=== PATIENT | female | born 1990 | race Caucasian/White ===

== ENCOUNTER 2020-10-07 18:32 | Inpatient (IN) | payer MEDICAID ==
[~2020-10-07] VITALS: Ht 160 cm; Wt 52.3 kg
[~2020-10-07 18:32] MED LIST changes: -LORazepam 1MG TABLET ONE; -LORazepam 1MG TABLET PO ONE
[2020-10-07] MEDS ORDERED: DOCUSATE 100 MG CAPSULE PO PRN (19:00)
[2020-10-07] MEDS ORDERED: BISACODYL 10 MG SUPP PR PRN (19:00)
[2020-10-07] MEDS ORDERED: ONDANSETRON ODT 4 MG PO PRN (19:00)
[2020-10-07] MEDS ORDERED: POLYETHYLENE GLYCOL 17 GM PACKET PO PRN (19:00)
[2020-10-07] MEDS ORDERED: ACETAMINOPHEN 325 MG TABLET PO PRN (19:00)
[2020-10-07 19:30] VITALS: BP 119/75
[2020-10-07] MEDS ORDERED: PLEASE ENTER HEIGHT AND WEIGHT MC SCH (19:30)
[2020-10-07 21:00] VITALS: BP 119/75
[2020-10-07] MEDS ORDERED: ZIPRASIDONE 20MG CAPSULE PO SCH (21:00)
[2020-10-07] MEDS: PRAZOSIN 2 MG CAPSULE PO SCH (21:41)
[2020-10-07] MEDS: LORazepam 1MG TABLET PO PRN (22:27)
[2020-10-07 22:50] LABS: MICROSCOPIC NOT IND
[2020-10-08 06:32] LABS: BASOPHILS % (AUTO) 1 % (0-1); EOSINOPHILS % (AUTO) 2 % (1-7); LYMPHOCYTES % (AUTO) 39 % (22-44); MEAN CORPUSCULAR HEMOGLOBIN 31.1 pg (27.0-34.8); MEAN CORPUSCULAR HGB CONC 33.3 g/dL (32.4-35.8); MEAN PLATELET VOLUME 8.1 fL (7.4-10.4); MONOCYTES % (AUTO) 13 % (2-9); NEUTROPHILS % (AUTO) 46 % (42-75); PLATELET COUNT 313 x10^3/uL (130-400); RED BLOOD COUNT 4.52 x10^6/uL (3.82-5.3); RED CELL DISTRIBUTION WIDTH 12.7 % (9.6-15.2)
[2020-10-08 06:35] LABS: MD NO
[2020-10-08 06:41] LABS: ALBUMIN 3.6 g/dL (3.4-5.0); ANION GAP 3 mmol/L (5-15); CALCIUM 9.1 mg/dL (8.5-10.1); CHLORIDE 107 mmol/L (98-107)
[2020-10-08 06:45] LABS: ALANINE AMINOTRANSFERASE 25 U/L (12-78); ALKALINE PHOSPHATASE 61 U/L (45-117); BILIRUBIN,TOTAL 0.5 mg/dL (0.2-1.0); CHOL/HDL RATIO 1.7; CHOLESTEROL, TOTAL 113 mg/dL (140-239); HDL CHOL % 58 % (28-40); HDL CHOLESTEROL (DIRECT) 65 mg/dL (40-60); LDL CHOLESTEROL,CALCULATED 40 mg/dL (54-169); LDL/HDL RATIO 0.6 (0.5-3.0); TRIGLYCERIDES 40 mg/dL (50-200); VLDL CHOLESTEROL 8 mg/dL (0-25)
[2020-10-08 07:07] LABS: CREATININE 0.85 mg/dL (0.55-1.02)
[2020-10-08 07:13] VITALS: BP 120/80
[2020-10-08] MEDS: NICOTINE 21 MG/24 HR PATCH.TD24 TD SCH (08:13)
[2020-10-08] MEDS: LORazepam 1MG TABLET PO PRN ×2 (11:35→21:44)
[2020-10-08] MEDS: ZIPRASIDONE 20MG CAPSULE PO PRN (14:26)
[2020-10-08 19:35] VITALS: BP 112/81
[2020-10-08] MEDS: ZIPRASIDONE 40MG CAPSULE PO SCH (20:21)
[2020-10-08] MEDS: PRAZOSIN 2 MG CAPSULE PO SCH (20:28)
[2020-10-09 07:26] VITALS: BP 111/69
[2020-10-09] MEDS: NICOTINE 21 MG/24 HR PATCH.TD24 TD SCH (09:37)
[2020-10-09] MEDS: ZIPRASIDONE 20MG CAPSULE PO PRN (09:38)
[2020-10-09] MEDS: LORazepam 1MG TABLET PO PRN ×2 (11:09→19:29)
[2020-10-09 19:00] VITALS: BP 113/76
[2020-10-09] MEDS: ZIPRASIDONE 40MG CAPSULE PO SCH (20:09)
[2020-10-09] MEDS: PRAZOSIN 2 MG CAPSULE PO SCH (20:09)
[2020-10-09] MEDS: DIPHENHYDRAMINE 25 MG CAPSULE PO SCH (20:09)
[2020-10-10] MEDS: ZIPRASIDONE 20MG CAPSULE PO PRN ×2 (07:56→17:38)
[2020-10-10] MEDS: LORazepam 1MG TABLET PO PRN ×2 (07:56→18:41)
[2020-10-10] MEDS: NICOTINE 21 MG/24 HR PATCH.TD24 TD SCH (07:57)
[2020-10-10 19:25] VITALS: BP 108/75
[2020-10-10] MEDS: PRAZOSIN 2 MG CAPSULE PO SCH (19:41)
[2020-10-10] MEDS: ZIPRASIDONE 40MG CAPSULE PO SCH (19:41)
[2020-10-10] MEDS: DIPHENHYDRAMINE 25 MG CAPSULE PO SCH (19:41)
[2020-10-11 07:19] VITALS: BP 108/75
[2020-10-11 07:36] VITALS: BP 145/90
[2020-10-11] MEDS: NICOTINE 21 MG/24 HR PATCH.TD24 TD SCH (07:57)
[2020-10-11] MEDS: LORazepam 1MG TABLET PO PRN ×2 (07:59→20:24)
[2020-10-11] MEDS: ZIPRASIDONE 20MG CAPSULE PO PRN (12:33)
[2020-10-11 19:10] VITALS: BP 108/70
[2020-10-11] MEDS: ZIPRASIDONE 40MG CAPSULE PO SCH (20:18)
[2020-10-11] MEDS: DIPHENHYDRAMINE 25 MG CAPSULE PO SCH (20:19)
[2020-10-11] MEDS: PRAZOSIN 2 MG CAPSULE PO SCH (20:19)
[2020-10-12 07:00] VITALS: BP 98/65
[2020-10-12] MEDS: LORazepam 1MG TABLET PO PRN ×2 (08:26→21:05)
[2020-10-12] MEDS: ZIPRASIDONE 20MG CAPSULE PO PRN ×2 (08:30→16:21)
[2020-10-12] MEDS: NICOTINE 21 MG/24 HR PATCH.TD24 TD SCH (08:54)
[2020-10-12 19:53] VITALS: BP 110/62
[2020-10-12] MEDS: PRAZOSIN 2 MG CAPSULE PO SCH (20:03)
[2020-10-12] MEDS: ZIPRASIDONE 40MG CAPSULE PO SCH (20:03)
[2020-10-12] MEDS: DIPHENHYDRAMINE 25 MG CAPSULE PO SCH (20:05)
[2020-10-13] MEDS: ZIPRASIDONE 20MG CAPSULE PO PRN (06:23)
[2020-10-13 07:25] VITALS: BP 110/73
[2020-10-13] MEDS: NICOTINE 21 MG/24 HR PATCH.TD24 TD SCH (08:34)
[2020-10-13] MEDS: LORazepam 1MG TABLET PO PRN ×2 (08:34→20:49)
[2020-10-13] MEDS ORDERED: LORA-446 PO (12:50)
[2020-10-13] MEDS ORDERED: ZIPR20CA2 PO (12:50)
[2020-10-13] MEDS ORDERED: DIPH25CA26 PO (12:50)
[2020-10-13] MEDS ORDERED: NICO-587 TD (12:50)
[2020-10-13] MEDS ORDERED: PRAZ2CAP2 PO (12:50)
[2020-10-13] MEDS ORDERED: ZIPR40CA2 PO (12:50)
[2020-10-13 19:12] VITALS: BP 115/75
[2020-10-13] MEDS: DIPHENHYDRAMINE 25 MG CAPSULE PO SCH (20:45)
[2020-10-13] MEDS: PRAZOSIN 2 MG CAPSULE PO SCH (20:46)
[2020-10-13] MEDS: ZIPRASIDONE 40MG CAPSULE PO SCH (20:46)
[2020-10-14] MEDS: ZIPRASIDONE 20MG CAPSULE PO PRN (05:08)
[2020-10-14 07:26] VITALS: BP 110/74
[2020-10-14] MEDS: NICOTINE 21 MG/24 HR PATCH.TD24 TD SCH (09:00)
[2020-10-14] MEDS: LORazepam 1MG TABLET PO PRN (09:19)
== END 2020-10-14 11:30 | disposition home or self-care (01) | DRG 885 ==
LOC: 3E 18:57
PROVIDERS: ADMIT Psychiatry & Neurology Psychosomatic Medicine; ATTEND Psychiatry & Neurology Psychosomatic Medicine
DX: F31.2 Bipolar disorder, current episode manic severe with psychotic features (principal); F41.9 Anxiety disorder, unspecified; G47.00 Insomnia, unspecified; F17.210 Nicotine dependence, cigarettes, uncomplicated; F12.10 Cannabis abuse, uncomplicated; K58.9 Irritable bowel syndrome, unspecified; Z79.899 Other long term (current) drug therapy; Z83.3 Family history of diabetes mellitus; Z88.2 Allergy status to sulfonamides; Z88.8 Allergy status to other drugs, medicaments and biological substances
CPT/HCPCS: 36415; 71045; 80053; 80061; 81003; 82607; 82962; 84439; 84703; 85025; Q0163

== ENCOUNTER → 2020-10-07 | Emergency (ER) | payer MEDICAID, OTHER, SELFPAY ==
[~2020-10-07] VITALS: Ht 160 cm; Wt 55.0 kg
[~2020-10-07] MED LIST: HYDR-826 PO; LORazepam 1MG TABLET ONE; LORazepam 1MG TABLET PO ONE; PRAZ2CAP2 PO; ZIPR20CA2 PO
--- NOTE | 2020-10-07 13:25 | NUR ---
Pt up to bathroom, even steady gait. Alaina PROJECT ADMINISTRATOR at [facility] previously. Pt to be discharged home if father can care for her.
--- NOTE | 2020-10-07 13:40 | NUR ---
Patient on the phone with her father asking her "daddy, please come get me". Pt ambulates with even steady gate. Sitter at bediside.
[2020-10-07 13:55] LABS: BASOPHILS % (AUTO) 1 % (0-1); EOSINOPHILS % (AUTO) 0 % (1-7); LYMPHOCYTES % (AUTO) 22 % (22-44); MEAN CORPUSCULAR HEMOGLOBIN 31.7 pg (27.0-34.8); MEAN CORPUSCULAR HGB CONC 33.7 g/dL (32.4-35.8); MEAN PLATELET VOLUME 8.4 fL (7.4-10.4); MONOCYTES % (AUTO) 10 % (2-9); NEUTROPHILS % (AUTO) 67 % (42-75); PLATELET COUNT 364 x10^3/uL (130-400); RED BLOOD COUNT 4.67 x10^6/uL (3.82-5.3); RED CELL DISTRIBUTION WIDTH 12.9 % (9.6-15.2)
[2020-10-07 14:01] LABS: MD NO
[2020-10-07 14:06] LABS: CALCIUM 8.8 mg/dL (8.5-10.1); CHLORIDE 105 mmol/L (98-107)
[2020-10-07 14:15] LABS: AMPHETAMINE SCREEN, URINE Negative (Negative); BARBITURATE SCREEN, URINE Negative (Negative); BENZODIAZEPINE SCREEN, URINE Negative (Negative); CANNABINOID SCREEN, URINE Negative (Negative); COCAINE SCREEN, URINE Negative (Negative); METHADONE SCREEN, URINE Negative (Negative); OPIATE SCREEN, URINE Negative (Negative)
[2020-10-07 14:20] LABS: ALANINE AMINOTRANSFERASE 26 U/L (12-78); ALBUMIN 4.2 g/dL (3.4-5.0); ALKALINE PHOSPHATASE 72 U/L (45-117); ANION GAP 5 mmol/L (5-15); BILIRUBIN,TOTAL 0.3 mg/dL (0.2-1.0); CREATININE 0.97 mg/dL (0.55-1.02); SALICYLATE LEVEL 2.3 mg/dL (2.8-20.0); TOTAL PROTEIN 8.1 g/dL (6.4-8.2)
--- NOTE | 2020-10-07 15:11 | NUR ---
Pt has eaten LATIA Gonzales given. Pt was on the phone with river and Aunt Adolph
[2020-10-07 15:23] VITALS: BP 101/67
--- NOTE | 2020-10-07 15:47 | NUR ---
Pt on phone again, attempting to contact . Sitter with patient, and myself watching patient.
--- NOTE | 2020-10-07 16:06 | NUR ---
Preceptor RN: pt continues to make repeated phone calls. pt anxious and restless. no apparent distress. sitter present for safety
--- NOTE | 2020-10-07 16:41 | NUR ---
TP RN NOTE: THIS RN SPOKE WITH [facility] WHO ARE PENDING ACCEPTANCE ONCE THEY CORRESPOND WITH PT'S INSURANCE. RN ANTICIPATES ACCEPTANCE.
--- NOTE | 2020-10-07 17:52 | NUR ---
Preceptor RN: meal tray delivered
--- NOTE | 2020-10-07 18:16 | NUR ---
Report called to Alicia. zafra to be taken up via tech.
--- NOTE | 2020-10-07 18:55 | NUR ---
bedside report from Mayra EDWARDS and Delfina EDWARDS, pt care transferred at this time. pt to be transferred to U momentarily.
== END ==
LOC: ED 14:31
DX: F30.9 Manic episode, unspecified (principal); Z20.828 Contact with and (suspected) exposure to other viral communicable diseases; I49.9 Cardiac arrhythmia, unspecified
CPT/HCPCS: 36415; 80053; 80299; 80307; 80320; 80329; 84443; 84703; 85025; 87635; 93005; 99284; G0480